=== PATIENT | male | born 1975 | race African-American/Black ===

== ENCOUNTER 2021-11-11 10:05 | Emergency (ER) | payer MEDICAID, OTHER ==
[~2021-11-11] VITALS: Ht 175.3 cm; Wt 86.2 kg
[2021-11-11 10:23] VITALS: BP 164/101
[2021-11-11] MEDS ORDERED: CLIN300C8 PO (10:40)
[2021-11-11] MEDS ORDERED: FLUO0.024 EX (10:40)
== END 2021-11-11 10:53 | disposition home or self-care (01) ==
LOC: ER 10:05
DX: L73.9 Follicular disorder, unspecified (principal); F17.210 Nicotine dependence, cigarettes, uncomplicated; Z79.2 Long term (current) use of antibiotics; Z79.899 Other long term (current) drug therapy

== ENCOUNTER 2024-05-13 22:21 | Emergency (ER) | payer SELFPAY ==
[~2024-05-13 22:21] MED LIST: CLIN1CAP70 PO; FLUO0.024 EX
== END 2024-05-14 00:15 | disposition left against medical advice (07) ==
LOC: ER 22:21
DX: R10.9 Unspecified abdominal pain (principal); Z53.21 Procedure and treatment not carried out due to patient leaving prior to being seen by health care provider